=== PATIENT | male | born 1980 | race Caucasian/White ===

== ENCOUNTER 2023-09-07 19:54 | Inpatient (IN) | payer OTHER ==
[2023-09-07 20:50] VITALS: BMI 20.7
[2023-09-07] MEDS ORDERED: ACETAMINOPHEN 325 MG TABLET (FP) PO PRN (23:04)
[2023-09-07] MEDS ORDERED: IBUPROFEN 600 MG TABLET (FP) PO PRN (23:04)
[2023-09-07] MEDS ORDERED: BENZOCAINE/MENTHOL (CHLORASEPTIC ) LOZENGE MM PRN (23:04)
[2023-09-07] MEDS ORDERED: IBUPROFEN 400 MG TABLET (FP) PO PRN (23:04)
[2023-09-07] MEDS ORDERED: BENZONATATE 200 MG CAPSULE PO PRN (23:04)
[2023-09-07] MEDS ORDERED: NALOXONE HCL (KLOXXADO) 8 MG SPRAY NS PRN (23:04)
[2023-09-07] MEDS ORDERED: NALOXONE HCL 0.4 MG/ML VIAL IM PRN (23:04)
[2023-09-07] MEDS ORDERED: MAGNESIUM HYDROX 2400MG/30ML ORAL SUSPENSION 30 ML CUP PO PRN (23:04)
[2023-09-07] MEDS ORDERED: ONDANSETRON *ODT* 4 MG TABLET SL PRN (23:04)
[2023-09-07] MEDS ORDERED: DICYCLOMINE HCL 10 MG CAPSULE PO PRN (23:04)
[2023-09-07] MEDS ORDERED: BISMUTH SUBSALICYLATE 524 MG/30 ML PO PRN (23:04)
[2023-09-07] MEDS ORDERED: NICOTINE POLACRILEX 2 MG GUM BUC PRN (23:04)
[2023-09-07] MEDS ORDERED: guaiFENesin 600 MG TABLET.ER (FP) PO PRN (23:04)
[2023-09-07] MEDS ORDERED: LOPERAMIDE HCL 2 MG CAPSULE PO PRN (23:04)
[2023-09-07] MEDS ORDERED: chlordiazePOXIDE HCL 25 MG CAPSULE PO PRN (23:04)
[2023-09-07] MEDS ORDERED: POLYETHYLENE GLYCOL (HEALTHYLAX) 3350 17 GM PACKET PO PRN (23:04)
[2023-09-07] MEDS ORDERED: MAG HYDROX/AL HYDROX/SIMETH 30 ML UNIT-DOSE CUP PO PRN (23:04)
[2023-09-07] MEDS ORDERED: MELATONIN 5 MG TABLETS ONE (23:15)
[2023-09-07] MEDS: chlordiazePOXIDE HCL 25 MG CAPSULE PO SCH (23:33)
[2023-09-08] MEDS: chlordiazePOXIDE HCL 25 MG CAPSULE PO SCH ×2 (05:53→10:18)
[2023-09-08] MEDS ORDERED: methaDONE HCL 40 MG DISPERSABLE TABLET PO ONE (06:00)
[2023-09-08] MEDS: hydrOXYzine PAMOATE 25 MG CAPSULE (FP) PO PRN ×2 (10:17→22:56)
[2023-09-08] MEDS: NICOTINE 7 MG/24 HOURS TOPICAL PATCH TD SCH (10:17)
[2023-09-08] MEDS: PRENATAL VITAMINS W/ FOLIC ACID TABLET (FP) PO SCH (10:19)
[2023-09-08 10:26] LABS: HEMATOCRIT 29.2 % (35.4-49); HEMOGLOBIN 9.3 GM/dL (11.7-16.9); MCH 24.7 pg (25.7-33.7); MCHC 31.9 g/dl (32.0-35.9); MEAN CELL VOLUME 77.4 fl (80-96); MEAN PLT VOLUME 8.9 fl (7.5-11.1); PLATELET COUNT 293 10^3/uL (134-434); RBC 3.78 M/mm3 (4.00-5.60); RDW 16.5 % (11.9-15.9); WHITE BLOOD COUNT 4.8 K/mm3 (4.0-10.0)
[2023-09-08 11:16] LABS: POTASSIUM 3.9 mmol/L (3.5-5.1)
[2023-09-08] MEDS ORDERED: LORazepam 1 MG TABLET PO PRN (11:16)
[2023-09-08 11:23] LABS: CALCIUM 8.6 mg/dL (8.5-10.1)
[2023-09-08 11:24] LABS: ALBUMIN 3.5 g/dl (3.4-5.0); BLOOD UREA NITROGEN 12.3 mg/dL (7-18)
[2023-09-08 11:25] LABS: CREATININE 0.9 mg/dL (0.55-1.3)
[2023-09-08 11:27] LABS: TOT PROT 6.5 g/dl (6.4-8.2)
[2023-09-08 11:29] LABS: BILIRUBIN,TOTAL 1.1 mg/dL (0.2-1)
[2023-09-08] MEDS: amLODIPine BESYLATE 5 MG TABLET (FP) PO SCH (11:48)
[2023-09-08] MEDS: LORazepam 2 MG TABLET PO SCH ×2 (17:28→22:55)
[2023-09-08] MEDS: THIAMINE HCL 100 MG TABLET (FP) PO SCH (22:56)
[2023-09-08] MEDS: MELATONIN 5 MG TABLETS PO SCH (22:56)
[2023-09-08] MEDS: METHOCARBAMOL 500 MG TABLET PO PRN (22:56)
[2023-09-09] MEDS ORDERED: chlordiazePOXIDE HCL 25 MG CAPSULE PO SCH (05:00)
[2023-09-09] MEDS: LORazepam 2 MG TABLET PO SCH ×4 (05:19→22:17)
[2023-09-09] MEDS: amLODIPine BESYLATE 5 MG TABLET (FP) PO SCH (09:28)
[2023-09-09] MEDS: NICOTINE 7 MG/24 HOURS TOPICAL PATCH TD SCH (09:29)
[2023-09-09] MEDS ORDERED: methaDONE HCL 40 MG DISPERSABLE TABLET PO ONE (09:30)
[2023-09-09] MEDS: PRENATAL VITAMINS W/ FOLIC ACID TABLET (FP) PO SCH (10:41)
[2023-09-09] MEDS: FERROUS SO4 325 MG TABLET (FP) PO SCH ×2 (12:21→17:14)
[2023-09-09 20:48] VITALS: RESP 18
[2023-09-09] MEDS: MELATONIN 5 MG TABLETS PO SCH (22:17)
[2023-09-09] MEDS: METHOCARBAMOL 500 MG TABLET PO PRN (22:17)
[2023-09-09] MEDS: THIAMINE HCL 100 MG TABLET (FP) PO SCH (22:17)
[2023-09-10] MEDS ORDERED: chlordiazePOXIDE HCL 10 MG CAPSULE PO PRN
[2023-09-10] MEDS ORDERED: chlordiazePOXIDE HCL 10 MG CAPSULE PO SCH (05:00)
[2023-09-10] MEDS: LORazepam 1 MG TABLET PO SCH ×2 (05:37→10:01)
[2023-09-10] MEDS: FERROUS SO4 325 MG TABLET (FP) PO SCH ×2 (07:08→11:18)
[2023-09-10 08:59] VITALS: BP 132/90; PULSE 97; TEMP 97.3
[2023-09-10] MEDS: amLODIPine BESYLATE 5 MG TABLET (FP) PO SCH (09:18)
[2023-09-10] MEDS: PRENATAL VITAMINS W/ FOLIC ACID TABLET (FP) PO SCH (09:18)
[2023-09-10] MEDS: NICOTINE 7 MG/24 HOURS TOPICAL PATCH TD SCH (09:19)
[2023-09-10] MEDS ORDERED: methaDONE HCL 40 MG DISPERSABLE TABLET PO ONE (10:00)
[2023-09-10] MEDS ORDERED: DOCUSATE SODIUM 100 MG CAPSULE (FP) PO SCH (14:00)
[2023-09-11] MEDS ORDERED: chlordiazePOXIDE HCL 10 MG CAPSULE PO SCH (05:00)
[2023-09-11] MEDS ORDERED: LORazepam 0.5 MG TABLET PO SCH (05:00)
[2023-09-11] MEDS ORDERED: methaDONE HCL 40 MG DISPERSABLE TABLET PO SCH (06:00)
[2023-09-12] MEDS ORDERED: LORazepam 0.5 MG TABLET PO ONE (05:00)
[2023-09-12] MEDS ORDERED: chlordiazePOXIDE HCL 10 MG CAPSULE PO ONE (05:00)
== END 2023-09-10 13:10 | disposition home or self-care (01) | DRG 770 ==
LOC: YASAS 19:54 → Y3N 23:35 → Y6N 09-08 02:29
PROVIDERS: ADMIT Allergy & Immunology; ATTEND Surgery
PROC: HZ2ZZZZ Detoxification Services for Substance Abuse Treatment (ICD-10-PCS; principal; 2023-09-07)
DX: F10.230 Alcohol dependence with withdrawal, uncomplicated (principal); F11.20 Opioid dependence, uncomplicated; F17.210 Nicotine dependence, cigarettes, uncomplicated; F10.280 Alcohol dependence with alcohol-induced anxiety disorder; F10.282 Alcohol dependence with alcohol-induced sleep disorder; D50.9 Iron deficiency anemia, unspecified; K59.03 Drug induced constipation; Z86.19 Personal history of other infectious and parasitic diseases; Z99.89 Dependence on other enabling machines and devices; Z56.0 Unemployment, unspecified; Z59.00 Homelessness unspecified
CPT/HCPCS: 36415; 80053; 82607; 82746; 83540; 83550; 85027; 86780; 87635; 87811

== ENCOUNTER 2024-06-30 12:59 | Inpatient (IN) | payer OTHER ==
[2024-06-30 13:31] VITALS: BMI 21.2
[2024-06-30] MEDS ORDERED: NALOXONE (NARCAN) HCL 4 MG/0.1 ML SPRAY NS PRN (16:34)
[2024-06-30] MEDS ORDERED: IBUPROFEN 400 MG TABLET (FP) PO PRN (16:34)
[2024-06-30] MEDS ORDERED: BENZOCAINE/MENTHOL (CHLORASEPTIC ) LOZENGE MM PRN (16:34)
[2024-06-30] MEDS ORDERED: LOPERAMIDE HCL 2 MG CAPSULE PO PRN (16:34)
[2024-06-30] MEDS ORDERED: MAGNESIUM HYDROX 2400MG/30ML ORAL SUSPENSION 30 ML CUP PO PRN (16:34)
[2024-06-30] MEDS ORDERED: DICYCLOMINE HCL 10 MG CAPSULE PO PRN (16:34)
[2024-06-30] MEDS ORDERED: NALOXONE HCL 0.4 MG/ML VIAL IM PRN (16:34)
[2024-06-30] MEDS ORDERED: MAG HYDROX/AL HYDROX/SIMETH 30 ML UNIT-DOSE CUP PO PRN (16:34)
[2024-06-30] MEDS ORDERED: BISMUTH SUBSALICYLATE 524 MG/30 ML PO PRN (16:34)
[2024-06-30] MEDS ORDERED: ACETAMINOPHEN 325 MG TABLET (FP) PO PRN (16:34)
[2024-06-30] MEDS ORDERED: BENZONATATE 200 MG CAPSULE PO PRN (16:34)
[2024-06-30] MEDS ORDERED: ONDANSETRON *ODT* 4 MG TABLET SL PRN (16:34)
[2024-06-30] MEDS ORDERED: guaiFENesin 600 MG TABLET.ER (FP) PO PRN (16:34)
[2024-06-30] MEDS ORDERED: POLYETHYLENE GLYCOL (HEALTHYLAX) 3350 17 GM PACKET PO PRN (16:34)
[2024-06-30] MEDS ORDERED: IBUPROFEN 600 MG TABLET (FP) PO PRN (16:34)
[2024-06-30] MEDS ORDERED: diazePAM 5 MG TABLET PO SCH (17:00)
[2024-06-30] MEDS: diazePAM 5 MG TABLET PO SCH (18:33)
[2024-06-30] MEDS: MELATONIN 5 MG TABLETS PO SCH (22:31)
[2024-06-30] MEDS: THIAMINE 100 MG TABLET PO SCH (22:31)
[2024-06-30] MEDS: METHOCARBAMOL 500 MG TABLET PO PRN (22:32)
[2024-07-01] MEDS ORDERED: methaDONE HCL 10 MG TABLET PO ONE (08:55)
[2024-07-01] MEDS ORDERED: methaDONE HCL 10 MG TABLET PO SCH (09:15)
[2024-07-01] MEDS: PRENATAL VITAMINS W/ FOLIC ACID TABLET (FP) PO SCH (09:21)
[2024-07-01] MEDS: methaDONE HCL 40 MG DISPERSABLE TABLET PO ONE (09:21)
[2024-07-01 11:50] LABS: CHLORIDE 103 mmol/L (98-107); POTASSIUM 3.7 mmol/L (3.5-5.1); SODIUM 141 mmol/L (136-145)
[2024-07-01 11:52] LABS: HEMATOCRIT 29.4 % (35.4-49); HEMOGLOBIN 9.5 GM/dL (11.7-16.9); MCH 24.1 pg (25.7-33.7); MCHC 32.3 g/dl (32.0-35.9); MEAN CELL VOLUME 74.6 fl (80-96); MEAN PLT VOLUME 8.2 fl (7.5-11.1); PLATELET COUNT 231 10^3/uL (134-434); RBC 3.95 M/mm3 (4.00-5.60); RDW 17.6 % (11.9-15.9); WHITE BLOOD COUNT 4.3 K/mm3 (4.0-10.0)
[2024-07-01 11:53] LABS: GLUCOSE,RANDOM 77 mg/dL (74-106)
[2024-07-01 11:54] LABS: ALBUMIN 3.6 g/dl (3.4-5.0); ANION GAP 6 mmol/L (4-13); CALCIUM 8.5 mg/dL (8.5-10.1); CO2 32 mmol/L (21-32)
[2024-07-01 11:55] LABS: BLOOD UREA NITROGEN 10.4 mg/dL (7-18)
[2024-07-01 11:56] LABS: CREATININE 0.7 mg/dL (0.55-1.3); SGPT/ALT 42 U/L (13-61)
[2024-07-01 11:57] LABS: SGOT/AST 37 U/L (15-37)
[2024-07-01 11:58] LABS: BILIRUBIN,TOTAL 1.4 mg/dL (0.2-1); TOT PROT 6.4 g/dl (6.4-8.2)
[2024-07-01 11:59] LABS: ALK PHOS 134 U/L (45-117)
[2024-07-01] MEDS: diazePAM 5 MG TABLET PO PRN (13:46)
[2024-07-01 21:21] VITALS: RESP 18
[2024-07-02] MEDS: diazePAM 5 MG TABLET PO SCH (05:16)
[2024-07-02] MEDS: methaDONE HCL 40 MG DISPERSABLE TABLET PO SCH (05:16)
[2024-07-02] MEDS ORDERED: methaDONE HCL 10 MG TABLET PO SCH (06:00)
[2024-07-02 09:46] VITALS: BP 129/89; PULSE 72; TEMP 98.1
[2024-07-02] MEDS ORDERED: BACLOFEN 10 MG TABLET (FP) PO SCH (12:00)
[2024-07-02] MEDS ORDERED: TRIHEXYPHENIDYL HCL 5 MG TABLET PO SCH (12:00)
[2024-07-03] MEDS ORDERED: diazePAM 5 MG TABLET PO SCH (06:00)
[2024-07-04] MEDS ORDERED: diazePAM 5 MG TABLET PO ONE (06:00)
== END 2024-07-02 12:32 | disposition left against medical advice (07) | DRG 770 ==
LOC: YASAS 12:59 → Y6N 17:29
PROVIDERS: ADMIT Allergy & Immunology; ATTEND Surgery
PROC: HZ2ZZZZ Detoxification Services for Substance Abuse Treatment (ICD-10-PCS; principal; 2024-06-30)
DX: F10.230 Alcohol dependence with withdrawal, uncomplicated (principal); F11.20 Opioid dependence, uncomplicated; F13.20 Sedative, hypnotic or anxiolytic dependence, uncomplicated; F17.210 Nicotine dependence, cigarettes, uncomplicated; G25.81 Restless legs syndrome; G20.A1 Parkinson's disease without dyskinesia, without mention of fluctuations; D64.9 Anemia, unspecified; R26.2 Difficulty in walking, not elsewhere classified; Z99.89 Dependence on other enabling machines and devices; Z86.73 Personal history of transient ischemic attack (TIA), and cerebral infarction without residual deficits; Z86.19 Personal history of other infectious and parasitic diseases; Z59.00 Homelessness unspecified
CPT/HCPCS: 36415; 80053; 80305; 80307; 85027; 86780; 93005; 93010

== ENCOUNTER 2025-03-03 14:35 | Inpatient (IN) | payer OTHER ==
[2025-03-03 15:53] VITALS: BMI 20.9
[2025-03-03] MEDS ORDERED: IBUPROFEN 400 MG TABLET (FP) PO PRN (16:18)
[2025-03-03] MEDS ORDERED: POLYETHYLENE GLYCOL (HEALTHYLAX) 3350 17 GM PACKET PO PRN (16:18)
[2025-03-03] MEDS ORDERED: BENZONATATE 200 MG CAPSULE PO PRN (16:18)
[2025-03-03] MEDS ORDERED: NICOTINE POLACRILEX 2 MG GUM BUC PRN (16:18)
[2025-03-03] MEDS ORDERED: LOPERAMIDE HCL 2 MG CAPSULE PO PRN (16:18)
[2025-03-03] MEDS ORDERED: MAGNESIUM HYDROX 2400MG/30ML ORAL SUSPENSION 30 ML CUP PO PRN (16:18)
[2025-03-03] MEDS ORDERED: ONDANSETRON *ODT* 4 MG TABLET SL PRN (16:18)
[2025-03-03] MEDS ORDERED: DICYCLOMINE HCL 10 MG CAPSULE PO PRN (16:18)
[2025-03-03] MEDS ORDERED: BISMUTH SUBSALICYLATE 524 MG/30 ML PO PRN (16:18)
[2025-03-03] MEDS ORDERED: NALOXONE (NARCAN) HCL 4 MG/0.1 ML SPRAY NS PRN (16:18)
[2025-03-03] MEDS ORDERED: MAG HYDROX/AL HYDROX/SIMETH 30 ML UNIT-DOSE CUP PO PRN (16:18)
[2025-03-03] MEDS ORDERED: ACETAMINOPHEN 325 MG TABLET (FP) PO PRN (16:18)
[2025-03-03] MEDS ORDERED: BENZOCAINE/MENTHOL (CHLORASEPTIC ) LOZENGE MM PRN (16:18)
[2025-03-03] MEDS ORDERED: guaiFENesin 600 MG TABLET.ER (FP) PO PRN (16:18)
[2025-03-03] MEDS ORDERED: IBUPROFEN 600 MG TABLET (FP) PO PRN (16:18)
[2025-03-03] MEDS ORDERED: METHOCARBAMOL 500 MG TABLET PO PRN (16:18)
[2025-03-03] MEDS ORDERED: chlordiazePOXIDE HCL 25 MG CAPSULE PO PRN (16:20)
[2025-03-03] MEDS ORDERED: chlordiazePOXIDE HCL 25 MG CAPSULE ONE (18:31)
[2025-03-03] MEDS: chlordiazePOXIDE HCL 25 MG CAPSULE PO SCH (18:32)
[2025-03-03] MEDS: levETIRAcetam 500 MG TABLET (FP) PO SCH (21:23)
[2025-03-03] MEDS: MELATONIN 5 MG TABLETS PO SCH (21:23)
[2025-03-03] MEDS: THIAMINE 100 MG TABLET PO SCH (21:23)
[2025-03-03] MEDS: GABAPENTIN 400 MG CAPSULE PO SCH (21:24)
[2025-03-03] MEDS: ACAMPROSATE CALCIUM 333 MG TABLET.DR PO SCH (21:24)
[2025-03-03] MEDS: BACLOFEN 10 MG TABLET (FP) PO SCH (21:25)
[2025-03-04] MEDS: methaDONE HCL 10 MG TABLET PO SCH (07:10)
[2025-03-04] MEDS: PRENATAL VITAMINS W/ FOLIC ACID TABLET (FP) PO SCH (10:16)
[2025-03-04 11:09] LABS: HEMATOCRIT 28.1 % (40.1-51.0); HEMOGLOBIN 8.3 g/dL (13.7-17.5); MCHC 29.5 g/dl (32.3-36.5); MEAN CELL VOLUME 72.1 fl (79.0-92.2); MEAN PLT VOLUME 10.9 fl (9.4-12.4); PLATELET COUNT 289 x10^3/uL (163-337); RDW 17.2 % (12.1-15.9)
[2025-03-04 11:19] LABS: CHLORIDE 107 mmol/L (98-107); POTASSIUM 3.8 mmol/L (3.5-5.1); SODIUM 140 mmol/L (136-145)
[2025-03-04 11:25] LABS: BLOOD UREA NITROGEN 13.6 mg/dL (7-18); CALCIUM 8.7 mg/dL (8.5-10.1)
[2025-03-04 11:26] LABS: ALBUMIN 3.2 g/dl (3.4-5.0); ANION GAP 4 mmol/L (4-13); CO2 30 mmol/L (21-32); GLUCOSE,RANDOM 87 mg/dL (74-106)
[2025-03-04 11:28] LABS: SGPT/ALT 48 U/L (13-61)
[2025-03-04 11:29] LABS: BILIRUBIN,TOTAL 0.6 mg/dL (0.2-1); TOT PROT 5.9 g/dl (6.4-8.2)
[2025-03-04 11:30] LABS: ALK PHOS 102 U/L (45-117); CREATININE 0.9 mg/dL (0.55-1.3); SGOT/AST 48 U/L (15-37)
[2025-03-04] MEDS: diazePAM 5 MG TABLET PO SCH (22:44)
[2025-03-05] MEDS ORDERED: chlordiazePOXIDE HCL 25 MG CAPSULE PO SCH (05:00)
[2025-03-05] MEDS: methaDONE HCL 40 MG DISPERSABLE TABLET PO SCH (06:26)
[2025-03-05] MEDS: diazePAM 5 MG TABLET PO SCH (06:27)
[2025-03-05] MEDS: diazePAM 5 MG TABLET PO PRN (09:28)
[2025-03-06] MEDS ORDERED: chlordiazePOXIDE HCL 10 MG CAPSULE PO PRN
[2025-03-06] MEDS ORDERED: chlordiazePOXIDE HCL 10 MG CAPSULE PO SCH (05:00)
[2025-03-06] MEDS: diazePAM 5 MG TABLET PO SCH (06:51)
[2025-03-06] MEDS: hydrOXYzine PAMOATE 25 MG CAPSULE (FP) PO PRN (10:07)
[2025-03-07] MEDS ORDERED: chlordiazePOXIDE HCL 10 MG CAPSULE PO SCH (05:00)
[2025-03-07] MEDS: diazePAM 5 MG TABLET PO ONE (05:57)
[2025-03-08] MEDS ORDERED: chlordiazePOXIDE HCL 10 MG CAPSULE PO ONE (05:00)
[2025-03-08 06:57] VITALS: BP 113/86; PULSE 80; RESP 16; TEMP 98.6
== END 2025-03-08 09:20 | disposition other institution (70) | DRG 773 ==
LOC: YASAS 14:35 → Y3N 16:34
PROVIDERS: ADMIT Allergy & Immunology; ATTEND Allergy & Immunology
PROC: HZ2ZZZZ Detoxification Services for Substance Abuse Treatment (ICD-10-PCS; principal; 2025-03-03)
DX: F10.230 Alcohol dependence with withdrawal, uncomplicated (principal); F11.20 Opioid dependence, uncomplicated; F17.210 Nicotine dependence, cigarettes, uncomplicated; F19.24 Other psychoactive substance dependence with psychoactive substance-induced mood disorder; D64.9 Anemia, unspecified; G20.B1 Parkinson's disease with dyskinesia, without mention of fluctuations; I69.854 Hemiplegia and hemiparesis following other cerebrovascular disease affecting left non-dominant side; Z99.89 Dependence on other enabling machines and devices
CPT/HCPCS: 36415; 80053; 80307; 85027; 86780; 93005; 93010; J0475